=== PATIENT | female | born 1975 | race Caucasian/White ===

== ENCOUNTER 2022-01-05 18:42 | Outpatient (CLI) | payer OTHER, SELFPAY ==
--- OUTSIDE RECORDS SUMMARY | 2022-01-05 18:44 | XMS_ITS | Encounter Summary ---
:1975 Author Organization [facility] Address [address] [place] [address] Care Team Providers Name Role Phone Elsewhere, Pcp Primary Care Provider Unavailable Reason for Visit Reason Comments COVID Nurse Line Sore Throat Encounter Details Date Type Department Care Team Description 09/17/2021 Nurse Triage Division of [facility] Arminda Perez C OVID Nurse Line; [facility], Walker, RLi, [facility] [place], [place] [address] [place] [address] [address] [place] [phone] Social History Tobacco Use Types Packs/Day Years Used Date Smoking Tobacco: Never Sex Assigned at Date Recorded Not on file documented as of this encounter Miscellaneous Notes Telephone Encounter - Arminda Perez M.A.N., R.Eva., N.[facility] - 09/17/2021 12:26 PM CDT Chief Complaint / Reason for Call Patient is a 46 y.o. female calling regarding COVID Nurse Line and Sore Throat. COVID-19 Nurse Line Screening ASSESSMENT Initial Screening Pathway Select appropriate pathway: : Adult In the last 48 hours, have you had a fever* OR symptoms that are unrelated to a preexisting illness?: New sore throat, New headache Date of symptom onset: 09/13/21 COVID Symptomatic Screening Do you have any of the following urgent symptoms?: No urgent symptoms noted (Continue Screening) Have you received a COVID-19 vaccine in the last 72 hours? : No vaccine received (Continue Screening) Have you had close contact* with a person who has tested positive with COVID-19 in the past 14 days?: No (Continue Screening) Have you tested positive for COVID-19 in the last 45 days?: No. COVID-19 testing is indicated (Continue Screening for Additional Testing) Additional Screening for Influenza, RSV and Strep Select appropriate region: : [place] Are all of the following Strep criteria met? : Yes, all 3 criteria met. Strep testing is indicated (End Screening) Symptom Onset Date of symptom onset: 09/13/21 PLAN Endpoint recommendation: Symptomatic testing indicated, advised to be swabbed for Group A Strep Only(age 3 to 75 only), sent to [place] testing locations require an appointment for testing. Patient provided with local scheduling phone number. Scheduling staff will provide instructions on the locationand details of check in. Standard Care Points -Get a COVID -19 vaccine as soon as you can if not fully vaccinated. -Wash hands frequently with soap and water, use hand education program manager if soap and water aren't available. -Wear a mask over your nose and mouth to help protect yourself and others if not fully vaccinated and having no symptoms -Stay 6 feet between yourself and others who don't live with you. -Avoid crowds and poorly ventilated indoor spaces. -Seek emergent care if any of the following occur Trouble breathing Bluish lips or face Persistent pain or pressure in the chest New confusion or inability to rouse. -Notify your regular care provider of any new or worsening symptoms. Symptomatic Carepoints: All symptomatic patients, even those who are up to date with COVID-19 vaccinations, should isolate pending COVID-19 testing result received. Stay home and separate yourself fromothers and stay in a specific sick room if able. Wear a mask if you have to be around others. Avoid sharing personal or household items. Rest. Hydrate. Take Acetaminophen/Ibuprofen as needed to control fever and muscles aches. Use over the counter medications as needed for other symptoms. Gargle with 8 ounces of warm salt water several times a day for throat discomfort (1/4 tsp regular salt to 8 ounces or 1 cup warm water). Do not swallow the salt water. Throat lozenges will help keep the throat lubricated. Hard candy, lollipops, and throat lozenges are equally effective. Use a humidifier. If youhave tested negative for COVID-19, and you continue to have new or worsening symptoms, consider retesting after 72 hours. Education: Patient/caregiver able to teach back Patient agreeable to plan of care: Yes The following references were used: [facility] novel coronavirus (COVID- 19) resources Nursing judgement documented in this encounter Plan of Treatment Not on filedocumented as of this encounter Visit Diagnoses Not on filedocumented in this encounter Care Teams Ditch Inspector Relationship Specialty Start Date End Date Elsewhere, Pcp PCP - General Family Medicine 01/10/20 documented as of this encounter
--- OUTSIDE RECORDS SUMMARY | 2022-01-05 18:44 | XMS_ITS | Encounter Summary ---
:1975 Author Organization [facility] Address [address] [place] [address] Care Team Providers Name Role Phone Elsewhere, Pcp Primary Care Provider Unavailable Encounter Details Date Type Department Care Team Description 09/18/2021 Admin Visit Urgent Care in [place], [place] [address] [place] [address] [facility] [phone] Social History Tobacco Use Types Packs/Day Years Used Date Smoking Tobacco: Never Sex Assigned at Date Recorded Not on file documented as of this encounter Plan of Treatment Not on filedocumented as of this encounter Visit Diagnoses Not on filedocumented in this encounter Care Teams Proof Coin Collector Relationship Specialty Start Date End Date Elsewhere, Pcp PCP - General Family Medicine 01/10/20 documented as of this encounter
--- OUTSIDE RECORDS SUMMARY | 2022-01-05 18:44 | XMS_ITS | Encounter Summary ---
:1975 Author Organization [facility] Address [address] [place] [address] Care Team Providers Name Role Phone Elsewhere, Pcp Primary Care Provider Unavailable Encounter Details Date Type Department Care Team Description 06/23/2021 Admin Visit Urgent Care in [place], [place] [address] [place] [address] [facility] [phone] Social History Tobacco Use Types Packs/Day Years Used Date Smoking Tobacco: Never Sex Assigned at Date Recorded Not on file documented as of this encounter Plan of Treatment Not on filedocumented as of this encounter Visit Diagnoses Not on filedocumented in this encounter Additional Health Concerns Infection Onset Date Last Indicated Resolved Time COVID19 Pending 06/23/2021 06/23/2021 06/23/2021 11:29 PM CDT documented as of this encounter Care Teams Client Services Coordinator Relationship Specialty Start Date End Date Elsewhere, Pcp PCP - General Family Medicine 01/10/20 documented as of this encounter
--- OUTSIDE RECORDS SUMMARY | 2022-01-05 18:44 | XMS_ITS | Encounter Summary ---
:1975 Author Organization [facility] Address [address] [place] [address] Care Team Providers Name Role Phone Elsewhere, Pcp Primary Care Provider Unavailable Reason for Visit Reason Onset Date Comments Testing For Upper Respiratory Virus Symptoms 09/17/2021 Encounter Details Date Type Department Care Team Description 09/17/2021 External Outreach Department of Mart Cespedes [facility], S, P.A.-C. Respiratory (Primary [facility], in [address] Dx) [place], [place] [address] [address] [place], [place] [phone] (Work) [phone] Social History Tobacco Use Types Packs/Day Years Used Date Smoking Tobacco: Never Sex Assigned at Date Recorded Not on file documented as of this encounter Progress Notes Anastacia Mcneil R.N. - 09/17/2021 1:23 PM CDT Encounter created for symptomatic infectious disease screening with possible COVID, Influenza, RSV, and/or Group A Strep testing. documented in this encounter Plan of Treatment Not on filedocumented as of this encounter Procedures Procedure Name Priority Date/Time Associated Diagnosis Comme nts GROUP A STREP PCR, Routine 09/18/2021 7:58 AM Infection Upper Results for this THROAT CDT Respiratory procedure are i n the results section. documented in this encounter Results Streptococcus Group A, Molecular Detection, PCR, Throat (09/18/2021 7:58 AM CDT) athologist Signature Group A Strep Negative Negative 09/18/2021 OWAT PCR, Throat 8:57 AM CDT Specimen Anatomical Collection Method Collection Time Receive d Time (Source) Location / / Volume Laterality Varies (Throat) 09/18/2021 7:58 AM 2021 8:29 CDT AM CDT Mart Cespedes P.A.-C. LAB MICROBIOLOGY - GENERAL O RDERABLES Performing Organization Address City/State/ZIP Code Phon e Number [facility]- [address] [place] [address] [place] [address] System in [place] [address] documented in this encounter Visit Diagnoses Diagnosis Infection Upper Respiratory - Primary documented in this encounter Care Teams Livestock Trucker Relationship Specialty Start Date End Date Elsewhere, Pcp PCP - General Family Medicine 01/10/20 documented as of this encounter
--- OUTSIDE RECORDS SUMMARY | 2022-01-05 18:44 | XMS_ITS | Encounter Summary ---
:1975 Author Organization [facility] Address [address] [place] [address] Care Team Providers Name Role Phone Elsewhere, Pcp Primary Care Provider Unavailable Reason for Visit Reason Onset Date Comments Outpatient COVID-19 Testing 06/23/2021 Encounter Details Date Type Department Care Team Description 06/23/2021 External Outreach Department of Pasha Hines [facility] in [place] (Suspected) Exposure [place], [place] [address] To COVID-19 (Primary [address] [place], [place]x) [place] [phone] Social History Tobacco Use Types Packs/Day Years Used Date Smoking Tobacco: Never Sex Assigned at Date Recorded Not on file documented as of this encounter Progress Notes Anastacia Mcneil R.N. - 06/23/2021 11:23 AM CDT Encounter created for COVID-19 screening. documented in this encounter Plan of Treatment Not on filedocumented as of this encounter Procedures Procedure Name Priority Date/Time Associated Diagnosis Comme nts SARS CORONAVIRUS-2 Routine 06/23/2021 2:25 PM Contact With And Results for this RNA, V CDT (Suspected) Exposure procedu re are in To COVID-19 the results section. documented in this encounter Results SARS Coronavirus-2 RNA, V Asymptomatic (06/23/2021 2:25 PM CDT) [facility] Method Time Signature SARS-CoV-2 Swab, 06/23/2021 MKTO Specimen Nasopharynx 11:29 PM Source CDT SARS CoV-2 Undetected Undetected 06/23/2021 MKTO RNA, TMA 11:29 PM CDT Comment: SARS-CoV-2 RNA absent. This result does not rule out COVID-19 in the patient, as the sensitivity of the test depends o n the timing of the specimen collection and the quality of the specim en. Result should be correlated with patient's history and clinical presentat ion. ----ADDITIONAL INFORMATION---- This molecular amplification test was pe rformed using the Aptima SARS-CoV-2 assay ([employer] on the Theratives tem under emergency use authorization (EUA) by the U.S. Food and Drug Administ ration. Fact sheets for this EUA assay can be fo und at the following links: For Healthcare Providers: https://www.Guestmob a.gov/media/444536/download For Patients: https://www.fda.gov/media/ 890177/download Specimen Anatomical Collection Method Collection Time Receive d Time (Source) Location / / Volume Laterality Varies 06/23/2021 2:25 PM 7:18 (Nasopharynx) CDT PM CDT Pasha Hines D.O. LAB MICROBIOLOGY - GENERAL O ISAIAH Performing Organization Address City/State/ZIP Code Phon e Number [facility]- [address] [place] [address] [place] [address] System [address] documented in this encounter Visit Diagnoses Diagnosis Contact With And (Suspected) Exposure To COVID-19 - Primary documented in this encounter Additional Health Concerns Infection Onset Date Last Indicated Resolved Time COVID19 Pending 06/23/2021 06/23/2021 06/23/2021 11:29 PM CDT documented as of this encounter Care Teams Mine Supervisor Relationship Specialty Start Date End Date Elsewhere, Pcp PCP - General Family Medicine 01/10/20 documented as of this encounter
--- OUTSIDE RECORDS SUMMARY | 2022-01-05 18:44 | XMS_ITS | Clinical Summary ---
:1975 Author Organization [facility] Address [address] [place] [address] Care Team Providers Name Role Phone Elsewhere, Pcp Primary Care Provider Unavailable Source Comments Patient records contain information from all sites at [facility]. For routine questions regarding patient records, call [phone] during business hours, M-F 8:00 AM - 5:00 PM Central Time. Record requests for emergency care only can be directed to [phone] at any time.[facility] Active Problems Problem Noted Date Dysthymia 11/28/2007 Overview: Depression Anxiety Immunizations Name Administration Dates Next Due DTaP (Infanrix, [employer]) 04/25/2009 HepB, Unspecified 07/12/2005, 02/10/2005, 01/05/2005 Tdap 04/25/2009 Social History Tobacco Use Types Packs/Day Years Used Date Smoking Tobacco: Never Sex Assigned at Date Recorded Not on file Last Filed Vital Signs Vital Sign Reading Time Taken Comments Blood Pressure 108/68 02/15/2015 10:07 AM QUALITY ANALYST/TECHNICAL WRITER Pulse 80 02/15/2015 10:07 AM QUALITY ANALYST/TECHNICAL WRITER Temperature - - Respiratory Rate 13 02/15/2015 10:07 AM QUALITY ANALYST/TECHNICAL WRITER Oxygen Saturation - - Inhaled Oxygen Concentration - - Weight 69.8 kg (153 lb 14.1 oz) 02/15/2015 10:07 AM QUALITY ANALYST/TECHNICAL WRITER Height - - Body Mass Index - - Plan of Treatment Health Maintenance Due Date Last Done Comments CT Colonography 1975 Cervical Cancer Screening 1975 Cologuard 1975 Colonoscopy 1975 Colorectal Cancer Screening 1975 Creatinine Level 1975 FIT 1975 Fasting Glucose for Diabetes 1975 Screening HIV Screening 1975 Hepatitis C Screening 1975 Lipid (Cholesterol) Screening 1975 Mammogram 1975 Potassium Level 1975 Sodium Level 1975 COVID-19 Vaccine (#1) 1975 Depression Screening (Annual 02/21/2021 PHQ-2) Influenza Vaccine (#1) 2021 11/04/2016, 11/14/2014 DTaP,Tdap,and Td Vaccines (3 11/29/2026 11/29/2016, - Td or Tdap) 04/25/2009, 04/25/2009 Hepatitis B Vaccines Completed 07/12/2005, 02/10/2005, 01/05/2005 Pneumococcal vaccine (0-64 Aged Out No lo nger eligible based years) on patient's age to complete this to [facility] Insurance Payer Benefit Plan / Subscriber ID Effective Phone Address T ype Group Dates [facility] [id number] 2019-Pres [phone] [address] [employer] [phone] [place] [address] Care Teams Production Hand Relationship Specialty Start Date End Date Elsewhere, Pcp PCP - General Family Medicine 01/10/20
--- OUTSIDE RECORDS SUMMARY | 2022-01-05 18:45 | XMS_ITS | Encounter Summary ---
:1975 Author Organization [facility] Address [address] [place] [address] Care Team Providers Name Role Phone Unavailable Primary Care Provider Unavailable Encounter Details Date Type Department Care Team Description 04/16/2004 Hospital Encounter HX [facility] FAMILYPR[facility] Mariann Alejandra M.D. Social History Tobacco Use Types Packs/Day Years Used Date Smoking Tobacco: Never Assessed Sex Assigned at Date Recorded Not on file documented as of this encounter Plan of Treatment Not on filedocumented as of this encounter Visit Diagnoses Not on filedocumented in this encounter
--- OUTSIDE RECORDS SUMMARY | 2022-01-05 18:45 | XMS_ITS | Encounter Summary ---
:1975 Author Organization [facility] Address [address] [place] [address] Care Team Providers Name Role Phone Elsewhere, Pcp Primary Care Provider Unavailable Encounter Details Date Type Department Care Team Description 06/18/2020 Orders Only [facility] PCP [facility] Sa alexandria France M.D. [address] [place], [place] [phone] (Wo rk) Social History Tobacco Use Types Packs/Day Years Used Date Smoking Tobacco: Never Sex Assigned at Date Recorded Not on file documented as of this encounter Plan of Treatment Not on filedocumented as of this encounter Visit Diagnoses Not on filedocumented in this encounter Care Teams Retail Pharmacy Technician Relationship Specialty Start Date End Date Elsewhere, Pcp PCP - General Family Medicine 01/10/20 documented as of this encounter
--- OUTSIDE RECORDS SUMMARY | 2022-01-05 18:45 | XMS_ITS | Encounter Summary ---
:1975 [address] [facility] Address [address] [place] [address] Care Team Providers Name Role Phone Unavailable Primary Care Provider Unavailable Encounter Details Date Type Department Care Team Description 01/05/2005 Hospital Encounter [facility] Mariann Sharpe M.D. Social History Tobacco Use Types Packs/Day Years Used Date Smoking Tobacco: Never Assessed Sex Assigned at Date Recorded Not on file documented as of this encounter Plan of Treatment Not on filedocumented as of this encounter Visit Diagnoses Not on filedocumented in this encounter
--- OUTSIDE RECORDS SUMMARY | 2022-01-05 18:45 | XMS_ITS | Encounter Summary ---
:1975 Author Organization [facility] Address [address] [place] [address] Care Team Providers Name Role Phone Unavailable Primary Care Provider Unavailable Encounter Details Date Type Department Care Team Description 04/25/2009 Hospital Encounter HX [facility] FAMILYPR[facility] Mariann Alejandra M.D. Social History Tobacco Use Types Packs/Day Years Used Date Smoking Tobacco: Never Assessed Sex Assigned at Date Recorded Not on file documented as of this encounter Plan of Treatment Not on filedocumented as of this encounter Visit Diagnoses Not on filedocumented in this encounter
--- OUTSIDE RECORDS SUMMARY | 2022-01-05 18:45 | XMS_ITS | Encounter Summary ---
:1975 Author Organization [facility] Address [address] [place] [address] Care Team Providers Name Role Phone Unavailable Primary Care Provider Unavailable Encounter Details Date Type Department Care Team Description 10/22/2014 Hospital Encounter HX [facility] DERM Charis Brooke M.D. [address] [place] [address] (Wo rk) Social History Tobacco Use Types Packs/Day Years Used Date Smoking Tobacco: Never Assessed Sex Assigned at Date Recorded Not on file documented as of this encounter Plan of Treatment Not on filedocumented as of this encounter Visit Diagnoses Not on filedocumented in this encounter
--- OUTSIDE RECORDS SUMMARY | 2022-01-05 18:45 | XMS_ITS | Encounter Summary ---
:1975 Author Organization [facility] Address [address] [place] [address] Care Team Providers Name Role Phone Unavailable Primary Care Provider Unavailable Encounter Details Date Type Department Care Team Description 04/22/2008 Hospital Encounter HX NO MAPPING Lauren Mendes Au. D. Social History Tobacco Use Types Packs/Day Years Used Date Smoking Tobacco: Never Assessed Sex Assigned at Date Recorded Not on file documented as of this encounter Plan of Treatment Not on filedocumented as of this encounter Visit Diagnoses Not on filedocumented in this encounter
--- OUTSIDE RECORDS SUMMARY | 2022-01-05 18:45 | XMS_ITS | Encounter Summary ---
:1975 Author Organization [facility] Address [address] [place] [address] Care Team Providers Name Role Phone Unavailable Primary Care Provider Unavailable Encounter Details Date Type Department Care Team Description 11/15/2005 Hospital Encounter HX [facility] FAMILYPR[facility] Mariann Alejandra M.D. Social History Tobacco Use Types Packs/Day Years Used Date Smoking Tobacco: Never Assessed Sex Assigned at Date Recorded Not on file documented as of this encounter Plan of Treatment Not on filedocumented as of this encounter Visit Diagnoses Not on filedocumented in this encounter
--- OUTSIDE RECORDS SUMMARY | 2022-01-05 18:45 | XMS_ITS | Encounter Summary ---
:1975 Author Organization [facility] Address [address] [place] [address] Care Team Providers Name Role Phone Unavailable Primary Care Provider Unavailable Encounter Details Date Type Department Care Team Description 09/27/2005 Hospital Encounter [facility]X [facility] FAMILY[facility] Loi Andersen M.D. [address] [place] [address] (Wo rk) Social History Tobacco Use Types Packs/Day Years Used Date Smoking Tobacco: Never Assessed Sex Assigned at Date Recorded Not on file documented as of this encounter Plan of Treatment Not on filedocumented as of this encounter Visit Diagnoses Not on filedocumented in this encounter
--- OUTSIDE RECORDS SUMMARY | 2022-01-05 18:45 | XMS_ITS | Encounter Summary ---
:1975 Author Organization [facility] Address [address] [place] [address] Care Team Providers Name Role Phone Unavailable Primary Care Provider Unavailable Encounter Details Date Type Department Care Team Description 04/06/2004 Hospital Encounter HX [facility] Ariana Ramírez M.D. [address] [place], [place] [address] (Wo rk) Social History Tobacco Use Types Packs/Day Years Used Date Smoking Tobacco: Never Assessed Sex Assigned at Date Recorded Not on file documented as of this encounter Plan of Treatment Not on filedocumented as of this encounter Visit Diagnoses Not on filedocumented in this encounter
--- OUTSIDE RECORDS SUMMARY | 2022-01-05 18:45 | XMS_ITS | Encounter Summary ---
:1975 Author Organization [facility] Address [address] [place] [address] Care Team Providers Name Role Phone Elsewhere, Pcp Primary Care Provider Unavailable Reason for Visit Reason Comments Flank Pain Encounter Details Date Type Department Care Team Description 01/05/2021 Emergency [facility] (Primary Dx); [address] [place] [address] Social History Tobacco Use Types Packs/Day Years Used Date Smoking Tobacco: Never Sex Assigned at Date Recorded Not on file documented as of this encounter Plan of Treatment Not on filedocumented as of this encounter Procedures Procedure Name Priority Date/Time Associated Comments Diagnosis CT ABDOMEN PELVIS RAD - Semiurgent 01/05/2021 8:15 Pain Flank Res ults for this WITHOUT IV CONTRAST (Fast; most ED PM LEGAL ADMINISTRATIVE ASSISTANT proced ure are in patients; some the results inpatients) section. US GALLBLADDER AND RAD - Semiurgent 01/05/2021 4:51 Re sults for this OR BILIARY DUCTS (Fast; most ED PM LEGAL ADMINISTRATIVE ASSISTANT procedure are in patients; some the results inpatients) section. documented in this encounter Results CT Abdomen Pelvis without IV Contrast (01/05/2021 8:15 PM LEGAL ADMINISTRATIVE ASSISTANT) Anatomical Region Laterality Modality Abdomen, Pelvis, Abdominal RST LOS, Abdominal ARZ LOS, N/A Computed Tomography Abdominal FLA LOS Specimen (Source) Anatomical Collection Method Collection Time Re ceived Time Location / / Volume Laterality 01/06/2021 8:31 AM LEGAL ADMINISTRATIVE ASSISTANT Impressions 01/06/2021 8:48 AM LEGAL ADMINISTRATIVE ASSISTANT 1. No hydronephrosis in either kidney. 2. 2 mm elongated focus of increased att enuation in the lower pole of the right kidney may be a miniscule nonobstructing calculus. vRad: ??Findings concordant with ronaldo Binghamad report. Narrative 01/06/2021 8:48 AM LEGAL ADMINISTRATIVE ASSISTANT EXAM: CT ABDOMEN PELVIS WITHOUT IV CONTRAST COMPARISON: Gallbladder ultrasound [facility] 01/05/2021 and Limited pelvic ultrasound examination 09/11/2008 FINDINGS: Liver: No acute abnormalities. Gallbladder: ??Normal. Spleen: No acute abnormalities. Pancreas: Within normal limits. Adrenal Glands: Within normal limits Kidneys: There is a 2 mm elongated focus of increased attenuation in the lower pole of the right kidney which may be a miniscule nonobstructing calculus. There is no hydronephrosis in either kidney. N o abnormal masses are identified. Bladder: No acute abnormalities. Bowel: No acute abnormalities. Minimal c olonic diverticulosis. Appendix: No acute abnormalities. Aorta: Within normal limits Inferior Vena Cava: Within normal limits Musculoskeletal: No acute abnormalities. Presumed bone islands in the pelvis. Lung Bases: No significant acute abnorma lity is identified in the visualized lung bases. Procedure Note Davie Garnett M.D. - 01/06/2021Format ting of this note might be different from the original. EXAM: CT ABDOMEN PELVIS WITHOUT IV CONTR AST [facility] and Limited pelvic ultrasound examination 09/11/2008 FINDINGS: Liver: No acute abnormalities. Gallbladder: Normal. Spleen: No acute abnormalities. Pancreas: Within normal limits. Adrenal Glands: Within normal limits Kidneys: There is a 2 mm elongated focus of increased attenuation in the lower pole of the right kidney which may be a miniscule nonobstructing calculus. There is no hydronephrosis in either kidney. N o abnormal masses are identified. Bladder: No acute abnormalities. Bowel: No acute abnormalities. Minimal c olonic diverticulosis. Appendix: No acute abnormalities. Aorta: Within normal limits Inferior Vena Cava: Within normal limits Musculoskeletal: No acute abnormalities. Presumed bone islands in the pelvis. Lung Bases: No significant acute abnorma lity is identified in the visualized lung bases. IMPRESSION: 1. No hydronephrosis in either kidney. 2. 2 mm elongated focus of increased att enuation in the lower pole of the right kidney may be a miniscule nonobstructing calculus. vRad: Findings concordant with prelimina ry vRad report. Carlton N Hicks C.N.P. IMG CT PROCEDURES US Gallbladder and or Biliary Ducts (01/05/2021 4:51 PM LEGAL ADMINISTRATIVE ASSISTANT) Anatomical Region Laterality Modality Abdomen, Ultrasound RST LOS, Ultrasound ARZ LOS, Ultrasound FLA N/A Ultrasound LOS Specimen (Source) Anatomical Collection Method Collection Time Re ceived Time Location / / Volume Laterality 01/05/2021 4:52 PM LEGAL ADMINISTRATIVE ASSISTANT Impressions 01/05/2021 4:53 PM LEGAL ADMINISTRATIVE ASSISTANT No gallstones. No bile duct dilation. Narrative 01/05/2021 4:53 PM LEGAL ADMINISTRATIVE ASSISTANT EXAM: US GALLBLADDER AND OR BILIARY DUCTS COMPARISON: None FINDINGS: Gallbladder: Normal. No gallstones. No w all thickening or pericholecystic fluid. Negative sonographic Duke sign. Intrahepatic ducts: Not dilated. Common duct: Not dilated. Aorta: Normal caliber. Procedure Note Carlin Grace M.D. - 01/05/2021Formattin g of this note might be different from the original. EXAM: US GALLBLADDER AND OR BILIARY DUCT S COMPARISON: None FINDINGS: Gallbladder: Normal. No gallstones. No w all thickening or pericholecystic fluid. Negative sonographic Duke sign. Intrahepatic ducts: Not dilated. Common duct: Not dilated. Aorta: Normal caliber. IMPRESSION: No gallstones. No bile duct dilation. Carlton N Hicks C.N.P. IMG US PROCEDURES documented in this encounter Visit Diagnoses Diagnosis Stone Kidney - Primary Pain Flank documented in this encounter Care Teams Enterprise Account Executive Relationship Specialty Start Date End Date Elsewhere, Pcp PCP - General Family Medicine 01/10/20 documented as of this encounter
--- OUTSIDE RECORDS SUMMARY | 2022-01-05 18:45 | XMS_ITS | Encounter Summary ---
:1975 Author Organization [facility] Address [address] [place] [address] Care Team Providers Name Role Phone Unavailable Primary Care Provider Unavailable Encounter Details Date Type Department Care Team Description 06/30/2007 Hospital Encounter HX [facility] Mariann Alejandra M.D. Social History Tobacco Use Types Packs/Day Years Used Date Smoking Tobacco: Never Assessed Sex Assigned at Date Recorded Not on file documented as of this encounter Plan of Treatment Not on filedocumented as of this encounter Visit Diagnoses Not on filedocumented in this encounter
--- OUTSIDE RECORDS SUMMARY | 2022-01-05 18:45 | XMS_ITS | Encounter Summary ---
:1975 Author Organization [facility] Address [address] [place] [address] Care Team Providers Name Role Phone Unavailable Primary Care Provider Unavailable Encounter Details Date Type Department Care Team Description 10/27/2006 Hospital Encounter HX [facility] Mariann Alejandra M.D. Social History Tobacco Use Types Packs/Day Years Used Date Smoking Tobacco: Never Assessed Sex Assigned at Date Recorded Not on file documented as of this encounter Plan of Treatment Not on filedocumented as of this encounter Visit Diagnoses Not on filedocumented in this encounter
--- OUTSIDE RECORDS SUMMARY | 2022-01-05 18:45 | XMS_ITS | Encounter Summary ---
:1975 Author Organization [facility] Address [address] [place] [address] Care Team Providers Name Role Phone Unavailable Primary Care Provider Unavailable Encounter Details Date Type Department Care Team Description 05/29/2004 Hospital Encounter HX [facility] Ariana Ramírez M.D. [address] [place], [place] [address] (Wo rk) Social History Tobacco Use Types Packs/Day Years Used Date Smoking Tobacco: Never Assessed Sex Assigned at Date Recorded Not on file documented as of this encounter Plan of Treatment Not on filedocumented as of this encounter Visit Diagnoses Not on filedocumented in this encounter
--- OUTSIDE RECORDS SUMMARY | 2022-01-05 18:45 | XMS_ITS | Encounter Summary ---
:1975 Author Organization [facility] Address [address] [place] [address] Care Team Providers Name Role Phone Unavailable Primary Care Provider Unavailable Encounter Details Date Type Department Care Team Description 07/12/2005 Hospital Encounter HX [facility] [place] Provider, [place] Social History Tobacco Use Types Packs/Day Years Used Date Smoking Tobacco: Never Assessed Sex Assigned at Date Recorded Not on file documented as of this encounter Plan of Treatment Not on filedocumented as of this encounter Visit Diagnoses Not on filedocumented in this encounter
--- OUTSIDE RECORDS SUMMARY | 2022-01-05 18:45 | XMS_ITS | Encounter Summary ---
:1975 Author Organization [facility] Address [address] [place] [address] Care Team Providers Name Role Phone Unavailable Primary Care Provider Unavailable Encounter Details Date Type Department Care Team Description 10/22/2014 Hospital Encounter HX [facility] Charis Brooke M.D. [facility], [place] [phone] (Wo ) Social History Tobacco Use Types Packs/Day Years Used Date Smoking Tobacco: Never Assessed Sex Assigned at Date Recorded Not on file documented as of this encounter Progress Notes Zoran Brooke M.D. - 10/22/2014 8:57 AM CDT [id number] CHIEF COMPLAINT/REASON FOR VISIT Full skin exam to screen for skin cancer. HISTORY OF PRESENT ILLNESS This 39-year-old female is here for a full skin exam. She was last seen in September of 2011. She has afamily history of a father that has had at least 2 melanomas. She herself has had no skin cancer, but she has had extensive sun exposure when she was growing up. She is also concerned about her acne. She had been on spironolactone for a while and then stopped itwhen she moved to [place], [place], and were attempting to have another child, but now she is 39 and has decided to give up on that and would like to have her acne treated again. MEDICATIONS Please see medication list in [facility] EMR updated today. ALLERGIES Please see allergy list in [facility] EMR updated today. SYSTEMS REVIEW Please see pertinent positives listed in HPI. Otherwise rest of systems review is negative. PAST MEDICAL/SURGICAL HISTORY Reviewed per EMR. Skin history as reviewed in HPI. 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 Enjoys volleyball and reading. Does not smoke. Drinks alcohol 3 to 5 a week. FAMILY HISTORY Psoriasis, eczema, acne, skin cancer. Negative for hayfever and asthma. PHYSICAL EXAMINATION GENERAL: Alert and oriented x3 in no acute distress. Pleasant demeanor. Well groomed. Near ideal weight. SKIN: Type 2 skin with mild photodamage on shoulders and upper back. She does have some mild comedones on the upper back, forehead, and chin. No inflammatory papules are noted. There are very few nevi and those that are present appear benign. She has some slight seborrhea along the frontal hairline. DIGITS: Fingers, toes, and nails are within normal limits on visualization and palpation. HEAD: Lips and teeth within normal limits. Hair of scalp and face within normal limits. EYES: Eyes and eyelids normal. THYROID: No thyromegaly on palpation. PERIPHERAL VESSELS: Peripheral vascular system intact. DIAGNOSTICS Medical records from previous visits were reviewed. Pertinent lab results were examined. Verbal consent for any photos was obtained. IMPRESSION/REPORT/PLAN 1. Full skin examination to screen for skin cancer. 2. Solar elastosis. Sun protection and sun avoidance were reviewed with the patient. Educational materials were reviewed regarding skin self-examination, the warning signs and symptoms of skin cancer, and the proper use of sunscreens. 3. Mild acne. I do not think she will require spironolactone for this. We talked about Glytone Gel Wash and suggested Aczone, but it was not covered by her insurance. 4. Seborrheic dermatitis. Refilled her desonide, which she uses infrequently for this problem. She will follow up as needed. Zoran Brooke M.D./priscilla Electronically Signed By: ZORAN BROOKE MD On: 12/11/2014 01:37 PM Source: [facility] MHSDOLBEYNONRADSYS Document Id: [id number] documented in this encounter Miscellaneous Notes Miscellaneous - Reba Yoon C.M.A. - 10/22/2014 9:09 AM CDT Adult Student Affairs Vice President Intake/History Adult Student Affairs Vice President Intake/History Entered On: 10/22/2014 9:10 CDT Performed On: 10/22/2014 9:09 CDT by REBA YOON [facility] Intake Chief Complaint : fse stopped acne medication last year would like to restart REBA YOON CMA - 10/22/2014 9:09 CDT General Info Information Given By : Patient Languages : Chilean Is Patient Female and 13-50 no hysterectomy : Yes Status : Patient denies Are you ? : No REBA YOON [facility] - 10/22/2014 9:09 CDT Subjective Pain Symptoms : No REBA YOON CMA - 10/22/2014 9:09 CDT Dependent Habits Tobacco Use/Currently Using : No Smoking Status : Never smoker REBA YOON [facility] - 10/22/2014 9:09 CDT Source: [facility] POWERCHART Document Id: [id number] CDT!14 documented in this encounter Plan of Treatment Not on filedocumented as of this encounter Visit Diagnoses Not on filedocumented in this encounter
--- OUTSIDE RECORDS SUMMARY | 2022-01-05 18:45 | XMS_ITS | Encounter Summary ---
:1975 Author Organization [facility] Address [address] [place] [address] Care Team Providers Name Role Phone Elsewhere, Pcp Primary Care Provider Unavailable Reason for Visit Reason Comments COVID Inquiry Encounter Details Date Type Department Care Team Description 03/12/2021 Clinical Communication Department of Family Elsewhere, [facility] [place] [place] [address] [place] [address] Social History Tobacco Use Types Packs/Day Years Used Date Smoking Tobacco: Never Sex Assigned at Date Recorded Not on file documented as of this encounter Miscellaneous Notes Telephone Encounter - Barbara Park - 03/12/2021 2:45 PM CST What is the purpose of the call?: Symptomatic (Calling PCP Office) Calling [place] PCP Office What region is the patient calling from? : [place] Have you tested positive for COVID-19 in the last 20 days? : No In the past 14 days are any of the following symptoms new to you and not related to an existing health condition?: New cough, New nausea, New chills, New myalgias (muscle aches), New headache Because of symptoms, transfer patient to: : [place] COVID Nurse Line (End Screening) Symptom Onset Date of symptom onset: 03/11/21 Plan: Endpoint recommendation: Transferred to Nursing/COVID Line/Care Team *Reminder if sending patient for testing in [facility] or [facility], route encounter to the correct testing pool. RTISING CONSULTANT documented in this encounter Plan of Treatment Not on filedocumented as of this encounter Visit Diagnoses Not on filedocumented in this encounter Care Teams Resident Services Coordinator Relationship Specialty Start Date End Date Elsewhere, Pcp PCP - General Family Medicine 01/10/20 documented as of this encounter
--- OUTSIDE RECORDS SUMMARY | 2022-01-05 18:45 | XMS_ITS | Encounter Summary ---
:1975 Author Organization [facility] Address [address] [place] [address] Care Team Providers Name Role Phone Unavailable Primary Care Provider Unavailable Encounter Details Date Type Department Care Team Description 04/10/2004 Hospital Encounter HX [facility] Ariana Ramírez M.D. [address] [place], [place] [address] (Wo rk) Social History Tobacco Use Types Packs/Day Years Used Date Smoking Tobacco: Never Assessed Sex Assigned at Date Recorded Not on file documented as of this encounter Plan of Treatment Not on filedocumented as of this encounter Visit Diagnoses Not on filedocumented in this encounter
--- OUTSIDE RECORDS SUMMARY | 2022-01-05 18:45 | XMS_ITS | Encounter Summary ---
:1975 Author Organization [facility] Address [address] [place] [address] Care Team Providers Name Role Phone Unavailable Primary Care Provider Unavailable Encounter Details Date Type Department Care Team Description 11/21/2007 Hospital Encounter HX [facility] Charis Brooke M.D. [address] [place] [address] (Wo rk) Social History Tobacco Use Types Packs/Day Years Used Date Smoking Tobacco: Never Assessed Sex Assigned at Date Recorded Not on file documented as of this encounter Plan of Treatment Not on filedocumented as of this encounter Visit Diagnoses Not on filedocumented in this encounter
--- OUTSIDE RECORDS SUMMARY | 2022-01-05 18:45 | XMS_ITS | Encounter Summary ---
:1975 Author Organization [facility] Address [address] [place] [address] Care Team Providers Name Role Phone Unavailable Primary Care Provider Unavailable Encounter Details Date Type Department Care Team Description 10/18/2005 Hospital Encounter HX [facility] Mariann Alejandra M.D. Social History Tobacco Use Types Packs/Day Years Used Date Smoking Tobacco: Never Assessed Sex Assigned at Date Recorded Not on file documented as of this encounter Plan of Treatment Not on filedocumented as of this encounter Visit Diagnoses Not on filedocumented in this encounter
--- OUTSIDE RECORDS SUMMARY | 2022-01-05 18:45 | XMS_ITS | Encounter Summary ---
:1975 Author Organization [facility] Address [address] [place] [address] Care Team Providers Name Role Phone Unavailable Primary Care Provider Unavailable Encounter Details Date Type Department Care Team Description 04/11/2008 Hospital Encounter HX [facility] Atilio Orellana M.D. [address] [place], [place] [address] (Wo rk) Social History Tobacco Use Types Packs/Day Years Used Date Smoking Tobacco: Never Assessed Sex Assigned at Date Recorded Not on file documented as of this encounter Plan of Treatment Not on filedocumented as of this encounter Visit Diagnoses Not on filedocumented in this encounter
--- OUTSIDE RECORDS SUMMARY | 2022-01-05 18:45 | XMS_ITS | Encounter Summary ---
:1975 Author Organization [facility] Address [address] [place] [address] Care Team Providers Name Role Phone Elsewhere, Pcp Primary Care Provider Unavailable Reason for Visit Reason Onset Date Comments Testing For Upper Respiratory Virus Symptoms 03/12/2021 Encounter Details Date Type Department Care Team Description 03/12/2021 External Outreach Department of Family Pasha Hines Contact With And (Suspected) Exposure To COVID-19; Medicine, [facility] Ashish Harley D.O. Infection [facility] Respiratory [facility], in [address] [place], [place] [address] [facility] [address] [place], [place] [phone] [address] (Work) [phone] Social History Tobacco Use Types Packs/Day Years Used Date Smoking Tobacco: Never Sex Assigned at Date Recorded Not on file documented as of this encounter Progress Notes Barbara Stout, L.P.N. - 03/12/2021 3:01 PM CST Encounter created for symptomatic infectious disease screening with possible COVID, Influenza, RSV, and/or Group A Strep testing. GEMENT TECHNICIAN documented in this encounter Miscellaneous Notes Result Encounter Note - Tonya Kennedy R.N. - 03/13/2021 4:36 PM MANAGEMENT TECHNICIAN Your patient has tested positive for SARS-CoV-2, the virus that causes COVID-19. IMPORTANT: Please update the patient's problem list and medication list to ensure an accurate and timely evaluation for COVID-19 treatments, including various medications and Remote Patient Monitoring (RPM). If eligible for COVID-19 treatments or RPM, your patient will be contacted by a designated team of nurses to coordinate the care. The [facility] Care Team ([facility]WCCT) sends general guidance about COVID-19 to all patients by letter or portal, except when a patient is hospitalized or resides in a detention. The MWCCT will also call all adult patients at highest risk for severe complications of COVID-19 . [facility] will not be calling patients who have a MASS 0-3. If your patient has limited Yi proficiency or challenges navigating the healthcare system, consider having a member of your care team contact them regarding their COVID diagnosis. Any patient with a MASS score 1 or greater or a COVID-19 score 1 or greater may be at higher risk ofsevere disease. These patients will follow up directly with primary care. The primary care team willdecide if the patient needs a phone call or a follow up portal message to assess symptom severity, provide individualized guidance on symptom monitoring or symptom management, or to reinforce when to se ek care. [facility] encourages patients to follow up with their PCP with questions, worsening symptoms, or for symptom management. For questions, contact the [facility] Care Team (MWCCT): Pager: [phone] In basket: P RST/[facility] COVID-19 POSITIVE Covid Care e-consult Components of the Monoclonal Antibody Selection Score (MASS) Compromised Immune System/Transplant = 4 points Chronic Kidney Disease on Dialysis = 3 points Age greater than or equal to 55 and chronic pulmonary disease = 2 points Age greater than or equal to 65 = 2 points Diabetes = 2 points Age greater than or equal to 55 AND cardiovascular disease = 2 points Age greater than or equal to 55 and hypertension = 1 point BMI =/> 35 = 1 point NOTE: At the time of testing, patients are instructed to obtain the result by calling the [employer] result line or by checking their online services account. GEMENT TECHNICIAN documented in this encounter Plan of Treatment Not on filedocumented as of this encounter Procedures Procedure Name Priority Date/Time Associated Diagnosis Comme nts INFLUENZA A/B AND Routine 03/12/2021 3:10 PM Infection Upper R esults for this RSV, PCR, VARIES MANAGEMENT TECHNICIAN Respiratory procedure a re in the results section. SARS CORONAVIRUS-2 Routine 03/12/2021 3:10 PM Contact With And Results for this RNA, V MANAGEMENT TECHNICIAN (Suspected) Exposure procedu re are in To COVID-19 the results section. documented in this encounter Results Influenza A/B and RSV, PCR, Varies (03/12/2021 3:10 PM MANAGEMENT TECHNICIAN) [facility] Method Time Signature Influenza A/B Swab, 03/14/2021 DTL and RSV, Nasopharynx 9:04 PM MANAGEMENT TECHNICIAN Source Influenza A, Undetected Undetected 03/14/2021 DTL PCR 9:04 PM MANAGEMENT TECHNICIAN Comment: Influenza A RNA absent. Influenza B, PCR Undetected Undetected 03/14/2021 9:04 PM CS T DTL Comment: Influenza B RNA absent. Respiratory Syncytial Virus, PCR Undetected Undetected 9:04 PM MANAGEMENT TECHNICIAN DTL Comment: RSV RNA absent. ----ADDITIONAL INFORMATION---- This test has been modified from the man daneacturer's instructions. Its performance characteristics were determi cynthia by [facility] in a manner consistent with CLIA requirements. This test has not been cleared or approved by the U.S. Food and Drug Administration . Specimen Anatomical Collection Method Collection Time Receive d Time (Source) Location / / Volume Laterality Varies 03/12/2021 3:10 PM (Nasopharynx) MANAGEMENT TECHNICIAN 10:24 PM MANAGEMENT TECHNICIAN Pasha Hines D.O. LAB MICROBIOLOGY - GENERAL O RDERABLES Performing Organization Address City/State/ZIP Code Phon e Number [facility] - [address] [place], [place] [address] [facility] [place] [place] [address] Laboratories-[facility] [address] (ABNORMAL) SARS Coronavirus-2 RNA, V Symptomatic (03/12/2021 3:10 PM MANAGEMENT TECHNICIAN) [facility] Method Time Signature SARS-CoV-2 Swab, 03/13/2021 MKTO Specimen Nasopharynx 11:17 AM Source MANAGEMENT TECHNICIAN SARS CoV-2 Detected (A) Undetected 03/13/2021 MKTO RNA, TMA 11:17 AM MANAGEMENT TECHNICIAN Comment: SARS-CoV-2 RNA present. ----ADDITIONAL INFORMATION---- This molecular amplification test was pe rformed using the Aptima SARS-CoV-2 assay ([employer] on the [employer] Sys tem under emergency use authorization (EUA) by the U.S. Food and Drug Administ kalpesh. Fact sheets for this EUA assay can be fo und at the following links: For Healthcare Providers: https://www.fd a.gov/media/980873/download For Patients: https://www.fda.gov/media/ 323550/download Specimen Anatomical Collection Method Collection Time Receive d Time (Source) Location / / Volume Laterality Varies 03/12/2021 3:10 PM 8:38 (Nasopharynx) MANAGEMENT TECHNICIAN PM MANAGEMENT TECHNICIAN Pasha Hines D.O. LAB MICROBIOLOGY - GENERAL O RDERABLES Performing Organization Address City/State/ZIP Code Phon e Number [facility]- [address] [place] [address] [place] [address] System [address] documented in this encounter Visit Diagnoses Diagnosis Contact With And (Suspected) Exposure To COVID-19 Infection Upper Respiratory documented in this encounter Additional Health Concerns Infection Onset Date Last Indicated Resolved Time COVID19 Pending 03/12/2021 03/12/2021 03/13/2021 11:18 AM MANAGEMENT TECHNICIAN documented as of this encounter Care Teams Playground Worker Relationship Specialty Start Date End Date Elsewhere, Pcp PCP - General Family Medicine 01/10/20 documented as of this encounter
--- OUTSIDE RECORDS SUMMARY | 2022-01-05 18:45 | XMS_ITS | Encounter Summary ---
:1975 Author Organization [facility] Address [address] [place] [address] Care Team Providers Name Role Phone Elsewhere, Pcp Primary Care Provider Unavailable Reason for Visit Reason Comments COVID Inquiry Encounter Details Date Type Department Care Team Description 11/03/2020 Clinical Communication Department of [facility] Inquiry [facility], [facility], in [address] [address] Social History Tobacco Use Types Packs/Day Years Used Date Smoking Tobacco: Never Sex Assigned at Date Recorded Not on file documented as of this encounter Miscellaneous Notes Telephone Encounter - Tanja Flores - 11/03/2020 12:40 PM CDT What is the purpose of the call?: Symptomatic (Calling PCP Office) Calling [place] PCP Office What region is the patient calling from? : [place] Have you tested positive for COVID-19 in the last 20 days? : No In the past 14 days are any of the following symptoms new to you and not related to an existing health condition?: New cough, Fever*, New shortness of breath, New diarrhea, New nausea, New chills, New myalgias (muscle aches), New headache, New loss of smell, New change or loss of taste sensation Symptom Onset Date of symptom onset: 10/30/20 Testing Recommendation Endpoint Is testing recommended? : Transferred to nursing call line Plan: Endpoint recommendation: Transferred to Nursing/COVID Line/Care Team *Reminder if sending patient for testing in [facility] or [facility], route encounter to the correct testing pool. documented in this encounter Plan of Treatment Not on filedocumented as of this encounter Visit Diagnoses Not on filedocumented in this encounter Care Teams Glass Frame Fitter Relationship Specialty Start Date End Date Elsewhere, Pcp PCP - General Family Medicine 01/10/20 documented as of this encounter
--- OUTSIDE RECORDS SUMMARY | 2022-01-05 18:45 | XMS_ITS | Encounter Summary ---
:1975 Author Organization [facility] Address [address] [place] [id number] Care Team Providers Name Role Phone Elsewhere, Pcp Primary Care Provider Unavailable Reason for Visit Reason Comments AILEEN Nurse Deanna Encounter Details Date Type Department Care Team Description 11/03/2020 Clinical Communication Division of AILEEN [facility] Internal Merlene Harley R.N. [facility], [place] [address] [facility], in [facility] [address] [place] [phone] [address] [facility] (Work) [place] [address] Social History Tobacco Use Types Packs/Day Years Used Date Smoking Tobacco: Never Sex Assigned at Date Recorded Not on file documented as of this encounter Miscellaneous Notes Telephone Encounter - Merlene Howard R.N. - 11/03/2020 12:42 PM CDT COVID-19 Nurse Line Screening ASSESSMENT Region Select appropriate region: : [place] Age Pathway Select approprite pathway: : Adult Have you had close contact* with a person who has a LABORATORY CONFIRMED case of COVID-19 in the past 14 days?: No (Continue Screening) In the last 48 hours, have you had a fever* OR symptoms that are unrelated to a preexisting illness?: New muscle aches, New cough, Fever, New loss of smell, New change or loss of taste sensation, New shortness of breath, New diarrhea, New nausea (Runny nose; she also notes a little chest tightness with the chest congestion but denies pain; fatigue) Have you received a COVID-19 vaccine in the last 72 hours? : No vaccine received (Continue Screening) Do you have any of the following urgent symptoms?: No urgent symptoms noted (Continue Screening) Have you tested positive for COVID-19 in the last 45 days?: No (Continue Screening) Are ALL the following criteria met: age between 18 to 75 yrs, main symptom is a sore throat with duration of 24 hrs to 7 days, onset of sore throat not associated with new upper respiratory symptoms*? : No, COVID testing is recommended (End Screening) Symptom Onset Date of symptom onset: 10/30/20 Testing Recommendation Endpoint Is testing recommended? : Recommended to test PLAN Endpoint recommendation: Symptomatic testing indicated, advised to be swabbed for COVID-19 Only , sent to [facility] located at [address] [place] [address] ([facility]). An appointment is required for testing, please call [phone] Tuesday-Tuesday 7am to 6pm and Tuesday & Tuesday 9am to 4pm to schedule an appointment. Testing hours are 8am - 4:30pm daily. You can also schedule via your Patient Online Services account. and Please avoid using public transportation per CDC recommendation. If you donot have personal transportation please self-quarantine until a personal transportation option is available. Standard Care Points -Get a COVID -19 vaccine as soon as you can if not fully vaccinated. -Wash hands frequently with soap and water, use hand orthopaedic nurse if soap and water aren't available. -Wear [...] any new or worsening symptoms. Symptomatic Carepoints: Stay home and separate yourself from others and stay in a specific sick room if able. Avoid sharing personal or household items. Rest. Hydrate. Take Acetaminophen/Ibuprofen asneeded to control fever and muscles aches. Use [...] are equally effective. Use a humidifier. If you have received a negative COVID-19 test result and continue to have new or worsening symptoms after 72 hours please call the COVID Nurse Line to assess if you need repeat testing or reach out to your Primary Care Provider for guidance. Education: Patient/caregiver able to teach back Patient agreeable to plan of care: Yes The following references were used: [facility] novel coronavirus (COVID- 19) resources CDC web site https://www.cdc.gov/coronavirus/2019-ncov/summary.html Nursing judgement documented in this encounter Plan of Treatment Not on filedocumented as of this encounter Visit Diagnoses Not on filedocumented in this encounter Additional Health Concerns Infection Onset Date Last Indicated Resolved Time COVID19 Pending 11/03/2020 11/03/2020 11/04/2020 2:25 AM CDT documented as of this encounter Care Teams Criminal Judge Relationship Specialty Start Date End Date Elsewhere, Pcp PCP - General Family Medicine 01/10/20 documented as of this encounter
--- OUTSIDE RECORDS SUMMARY | 2022-01-05 18:45 | XMS_ITS | Encounter Summary ---
:1975 Author Organization [facility] Address [address] [place] [address] Care Team Providers Name Role Phone Elsewhere, Pcp Primary Care Provider Unavailable Reason for Visit Reason Comments COVID Nurse Line Encounter Details Date Type Department Care Team Description 03/12/2021 Clinical Communication Division of Gem Rosas C OVID Nurse Deanna [facility] Internal R.N. [facility] [phone] [place], in (Work) [place], [place] [address] [place] [address] Social History Tobacco Use Types Packs/Day Years Used Date Smoking Tobacco: Never Sex Assigned at Date Recorded Not on file documented as of this encounter Miscellaneous Notes Telephone Encounter - Gem Rosas, RJohannaN. - 03/12/2021 2:49 PM CST COVID-19 Nurse Line Screening ASSESSMENT Initial Screening Pathway Select appropriate pathway: : Adult In the last 48 hours, have you had a fever* OR symptoms that are unrelated to a preexisting illness?: New cough, New nausea, New chills, New muscle aches, New headache (congestion, runny nose, fatigue) Date of symptom onset: 03/11/21 COVID Symptomatic Screening Do you have any of the following urgent symptoms?: No urgent symptoms noted (Continue Screening) Have you received a COVID-19 vaccine in the last 72 hours? : No vaccine received (Continue Screening) Have you had close contact* with a person who has tested positive with COVID-19 in the past 14 days?: Yes (Continue Screening) Have you tested positive for COVID-19 in the last 45 days?: No. COVID-19 testing is indicated (Continue Screening for Additional Testing) Additional Screening for Influenza, RSV and Strep Select appropriate region: : [place] Do you have any of the following respiratory syntonical virus (RSV) complications? : No complications noted (Continue Screening) Do you have any of the following high risk influenza criteria?: No criteria noted (Continue Screening) Are all of the following Strep criteria met? : Age is between 18-75 years, No, all criteria are not met. Influenza tesing is indicated. (End Screening) Symptom Onset Date of symptom onset: 03/11/21 Testing Recommendation Endpoint Is testing recommended? : Recommended to test Further Triage Needs Any further triage needs? : No further concerns noted. PLAN Endpoint recommendation: Symptomatic testing indicated, advised to be swabbed for COVID-19 and Influenza, sent to [facility] located at [address] [place] [address] ([facility]). An appointment is required for testing, please call [phone] Tuesday-Tuesday 7am to 6pm and Tuesday & Tuesday 9am to 4pm to schedule an appointment. Testing hours are 8am - 4:30pm daily. You can also schedule via your Patient Online Services account., Please avoid using public transportation per CDC recommendation. If you do not have personal transportation please self-quarantine until a personal transportation option is available. Standard Care Points -Get a COVID -19 vaccine as soon as you can if not fully vaccinated. -Wash hands frequently with soap and water, use hand home care coordinator if soap and water aren't available. -Wear [...] control fever and muscles aches. Use over thecounter medications as needed for other symptoms. Exposure Carepoints: If you have completed your COVID-19 vaccination series, quarantine is not needed if you remain without symptoms. Wear a mask for 10 days after last contact. Continue to wear a mask in indoor spaces when community transmission is high. Education: Patient/caregiver able to teach back Patient agreeable to plan of care: Yes The following references were used: [facility] novel coronavirus (COVID- 19) resources Nursing judgement CAL INTERPRETER documented in this encounter Plan of Treatment Not on filedocumented as of this encounter Visit Diagnoses Not on filedocumented in this encounter Care Teams Utility Pipe Layer Relationship Specialty Start Date End Date Elsewhere, Pcp PCP - General Family Medicine 01/10/20 documented as of this encounter
--- OUTSIDE RECORDS SUMMARY | 2022-01-05 18:45 | XMS_ITS | Encounter Summary ---
:1975 Author Organization [facility] Address [address] [place] [address] Care Team Providers Name Role Phone Elsewhere, Pcp Primary Care Provider Unavailable Reason for Visit Reason Onset Date Comments Testing For Upper Respiratory Virus Symptoms 11/03/2020 Encounter Details Date Type Department Care Team Description 11/03/2020 External Outreach Department of [facility] Pasha Hines Contact With And MedicineAlbaro D.O. (Suspected) Exposure Clinic, in [place], [address] To COVID-19 (Primary [place], [place] Dx) [address] [address] [place], [place] [phone] [address] (Work) [phone] Social History Tobacco Use Types Packs/Day Years Used Date Smoking Tobacco: Never Sex Assigned at Date Recorded Not on file documented as of this encounter Progress Notes Barbara Stout L.P.N. - 11/03/2020 1:29 PM CDT Encounter created for symptomatic infectious disease screening with possible COVID, Influenza, RSV, and/or Group A Strep testing. documented in this encounter Miscellaneous Notes Result Encounter Note - Yareli Cortez R.N., CLC - 11/04/2020 9:37 AM CDT The patient will be contacted if they are eligible for Monoclonal Antibody Infusion (MASS 1 or greater) and/or Remote Patient Monitoring (MASS 3 or greater). The [facility] Covid Care Team (CCT) sends general guidance about COVID-19 to all patients by letter or portal, except when a patient is hospitalized or resides in a [place] health care facility. [facility] will call all adult patients at highest risk for severe complications of COVID-19 (MASS 3 or greater), those without an online services account, and those who require an lang interpreter. Any patient with a MASS score 1 [...] to reinforce when to se ek care. [facility] encourages patients to follow up with their PCP with questions, worsening symptoms, or for symptom management. For questions, contact the [facility] Cov[facility] Care Team ([facility]WCCT): Pager: [phone] In basket: P RST/[facility] COVID-19 POSITIVE Covid Care e-consult Components of the Monoclonal Antibody Selection Score (MASS) Compromised Immune System/Transplant = 4 points Chronic Kidney Disease on Dialysis = 4 points Age greater than or equal to 55 and chronic pulmonary disease = 3 points Age greater than or equal to 65 = 2 points Age greater than or equal to = 2 points Diabetes = 2 points Age greater than or equal to 55 AND cardiovascular disease = 2 points Age greater than or equal to 55 and hypertension = 1 point NOTE: At the time of testing, patients are instructed to obtain the result by calling the [employer] result line or by checking the online services account. documented in this encounter Plan of Treatment Not on filedocumented as of this encounter Procedures Procedure Name Priority Date/Time Associated Diagnosis Comme nts SARS CORONAVIRUS-2 Routine 11/03/2020 1:53 PM Contact With And Results for this RNA, V CDT (Suspected) Exposure procedu re are in To COVID-19 the results section. documented in this encounter Results (ABNORMAL) SARS Coronavirus-2 RNA, V Symptomatic (11/03/2020 1:53 PM CDT) [facility] Method Time Signature SARS-CoV-2 Swab, 11/04/2020 MKTO Specimen Nasopharynx 2:23 AM CDT Source SARS CoV-2 Detected (A) Undetected 11/04/2020 MKTO RNA, TMA 2:23 AM CDT Comment: SARS-CoV-2 RNA present. ----ADDITIONAL INFORMATION---- This molecular amplification test was pe rformed using the Aptima SARS-CoV-2 assay ([employer] on the [place] [employer])s tem under emergency use authorization (EUA) by the U.S. Food and Drug Administ ration. Fact sheets for this EUA assay can be fo und at the following links: For Healthcare Providers: https://www.fd a.gov/media/140037/download For Patients: https://www.fda.gov/media/ 048552/download Specimen Anatomical Collection Method Collection Time Receive d Time (Source) Location / / Volume Laterality Varies 11/03/2020 1:53 PM 8:54 (Nasopharynx) CDT PM CDT Pasha Hines D.O. LAB MICROBIOLOGY - GENERAL O ISAIAH Performing Organization Address City/State/[facility] Phon e Number [facility]- [address] [place] [address] [place] [address] System [address] documented in this encounter Visit Diagnoses Diagnosis Contact With And (Suspected) Exposure To COVID-19 - Primary documented in this encounter Additional Health Concerns Infection Onset Date Last Indicated Resolved Time COVID19 Pending 11/03/2020 11/03/2020 11/04/2020 2:25 AM CDT documented as of this encounter Care Teams Advertising Copy Writer Relationship Specialty Start Date End Date Elsewhere, Pcp PCP - General Family Medicine 01/10/20 documented as of this encounter
--- OUTSIDE RECORDS SUMMARY | 2022-01-05 18:45 | XMS_ITS | Encounter Summary ---
:1975 Author Organization [facility] Address [address] [place] [address] Care Team Providers Name Role Phone Unavailable Primary Care Provider Unavailable Encounter Details Date Type Department Care Team Description 05/07/2008 Hospital Encounter HX NO MAPPING Lauren Mendes Au. D. Social History Tobacco Use Types Packs/Day Years Used Date Smoking Tobacco: Never Assessed Sex Assigned at Date Recorded Not on file documented as of this encounter Plan of Treatment Not on filedocumented as of this encounter Visit Diagnoses Not on filedocumented in this encounter
--- OUTSIDE RECORDS SUMMARY | 2022-01-05 18:45 | XMS_ITS | Encounter Summary ---
:1975 Author Organization [facility] Address [address] [place] [address] Care Team Providers Name Role Phone Unavailable Primary Care Provider Unavailable Encounter Details Date Type Department Care Team Description 02/15/2015 Hospital Encounter [facility] Monika Mondragon APRN, C.N.P., M.S.N. [address] [place] [phone] (Wo rk) Social History Tobacco Use Types Packs/Day Years Used Date Smoking Tobacco: Never Assessed Sex Assigned at Date Recorded Not on file documented as of this encounter Last Filed Vital Signs Vital Sign Reading Time Taken Comments Blood Pressure 108/68 02/15/2015 10:07 AM [employer] Pulse 80 02/15/2015 10:07 AM [employer] Temperature - - Respiratory Rate 13 02/15/2015 10:07 AM [employer] Oxygen Saturation - - Inhaled Oxygen Concentration - - Weight 69.8 kg (153 lb 14.1 oz) 02/15/2015 10:07 AM [employer] Height - - Body Mass Index - - documented in this encounter Progress Notes Monika Mondragon APRN, DOUGH BRAKER - 02/15/2015 9:05 AM CST [id number] CHIEF COMPLAINT/REASON FOR VISIT Sinus infection. HISTORY OF PRESENT ILLNESS Very pleasant 39-year-old female presents with intermittent sinus pain and pressure, headache acrossthe forehead and ears feeling plugged on and off since Thanks. Things are improving, but now she feels the worse she has felt. She is having bright green mucus from her nose and coughing from herthroat and severe sinus pressure. Denies any high fevers, headache, chills, chest pain, neck pain, shortness of breath, abdominal pain, nausea, vomiting, or diarrhea. MEDICATIONS Reviewed. See EMR medication list. ALLERGIES Reviewed. See EMR allergy list. SYSTEMS REVIEW Negative except for pertinent positives in HPI. PAST MEDICAL/SURGICAL HISTORY See EMR history and procedures. SOCIAL HISTORY Reviewed. No changes. FAMILY HISTORY Reviewed. No changes. VITAL SIGNS Refer to EMR vital signs flow sheet. PHYSICAL EXAMINATION GENERAL: Mildly ill-appearing adult. No distress. HEENT: Left TM with severe erythema, edema. No light reflex, tender. Right TM without erythema, edema or exudate. Nose: Bilateral turbinates, erythematous with green drainage seen. Oropharynx moderately injected with copious amounts of green drainage. NECK: Supple. Trachea midline. No lymphadenopathy. CARDIAC: Regular rate and rhythm. Normal S1, S2. No murmurs, rubs, or clicks. LUNGS: Lungs clear without wheezing, rhonchi, or rales. ABDOMEN: Soft. No tenderness on palpation. Normoactive bowel sounds. IMPRESSION/REPORT/PLAN 1. Acute otitis media. Amoxicillin prescribed for infection. Education provided regarding otitis media and home care handouts provided. Education regarding medication and side effects discussed. Strongly patient to follow up with primary care provider if symptoms did not improve or worsened over the next 5 to 7 days. Go to ER if patient develops high fever, chills, headache, neck pain, chest pain, shortness of breath, abdominal pain, nausea, vomiting, or diarrhea. Patient and mother verbalized good understanding of these instructions. 2. Acute sinusitis. Augmentin prescribed as above. Education regarding medication and side effects discussed in detail. Education regarding sinusitis and home care and handouts provided. Perform nasal rinses, use antihistamine or nasal spray for nasal symptoms, antibiotics as prescribed until gone. Encouraged patient to go to ER if she develops a high fever 102.7 or greater, chills, severe headache, neck pain, chest pain, shortness of breath, abdominal pain, nausea, vomiting, or diarrhea. Patient verbalized good understanding of these instructions. Diflucan or fluconazole prescribed. Patient statesshe usually gets yeast infections after antibiotics. Education regarding medication and side effectsdiscussed in detail. Did have patient take 1 tablet at the sinus symptoms and then again in 4 days if needed, and patient verbalized good understanding of all instructions. 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 Gatherer Intake/History Entered On: 02/15/2015 10:10 [employer] Performed On: 02/15/2015 10:07 [employer] by JIMMY CARIAS LPN Intake Chief Complaint : possible sinus infection, on and off since thanksgi, ears feel plugged and arepainful, mucous is bright green, sor ethroat, sinus pressure Temperature Oral : 36.6 DegC(Converted to: 97.9 DegF) Peripheral Pulse Rate : 80 /min Respiratory Rate : 13 /min (LOW) Heart Rhythm : Regular Systolic Blood Pressure : 108 mmHg Diastolic Blood Pressure : 68 mmHg NIBP Mean : 81 mmHg BP Location : Right upper extremity Blood Pressure Cuff Size : Regular Actual Weight : 69.8 kg(Converted to: 153 lb 14 oz) Dosing Weight Clinic : 69.8 kg JIMMY CARIAS LPN - 02/15/2015 10:07 [employer] General Info Languages : Slovenian Is Patient Female and 13-50 no hysterectomy : Yes Status : Patient denies Are you ? : No JIMMY CARIAS LPN - 02/15/2015 10:07 [employer] Subjective Pain Symptoms : Yes JIMMY CARIAS LPN - 02/15/2015 10:07 [employer] Pain Scale Pain Scale Verbal 0-10 : Open JIMMY CARIAS LPN - 02/15/2015 10:07 [employer] Pain Pain Assessment Grid Pain 1 Pain 2 Location : Other: sinus Quality : Pressure JIMMY CARIAS LPN - 02/15/2015 10:07 [employer] JIMMY CARIAS LPN - 02/15/2015 10:07 [employer] Dependent Habits Smoking Status : Never smoker Tobacco 2A : No JIMMY CARIAS LPN - 02/15/2015 10:07 [employer] Source: [facility] POWERCHART Document Id: [id number] [employer]!32 [employer] documented in this encounter Plan of Treatment Not on filedocumented as of this encounter Visit Diagnoses Not on filedocumented in this encounter
--- OUTSIDE RECORDS SUMMARY | 2022-01-05 18:45 | XMS_ITS | Encounter Summary ---
:1975 Author Organization [facility] Address [address] [place] [address] Care Team Providers Name Role Phone Unavailable Primary Care Provider Unavailable Encounter Details Date Type Department Care Team Description 04/22/2004 Hospital Encounter [facility]X [facility] Ariana Ramírez M.D. [address] [place], [place] [address] (Wo rk) Social History Tobacco Use Types Packs/Day Years Used Date Smoking Tobacco: Never Assessed Sex Assigned at Date Recorded Not on file documented as of this encounter Plan of Treatment Not on filedocumented as of this encounter Visit Diagnoses Not on filedocumented in this encounter
--- OUTSIDE RECORDS SUMMARY | 2022-01-05 18:45 | XMS_ITS | Encounter Summary ---
:1975 Author Organization [facility] Address [address] [place] [address] Care Team Providers Name Role Phone Unavailable Primary Care Provider Unavailable Encounter Details Date Type Department Care Team Description 11/10/2005 Hospital Encounter [facility]X [facility] DERM Charis Brooke M.D. [facility] [address] (Wo rk) Social History Tobacco Use Types Packs/Day Years Used Date Smoking Tobacco: Never Assessed Sex Assigned at Date Recorded Not on file documented as of this encounter Plan of Treatment Not on filedocumented as of this encounter Visit Diagnoses Not on filedocumented in this encounter
--- OUTSIDE RECORDS SUMMARY | 2022-01-05 18:45 | XMS_ITS | Encounter Summary ---
:1975 Author Organization [facility] Address [address] [place] [address] Care Team Providers Name Role Phone Elsewhere, Pcp Primary Care Provider Unavailable Encounter Details Date Type Department Care Team Description 11/03/2020 Admin Visit Department of Family Medicine, [address] [address] [facility] [phone] Social History Tobacco Use Types Packs/Day Years [...] documented as of this encounter Care Teams Network Operations Lead Relationship Specialty Start Date End Date Elsewhere, Pcp PCP - General Family Medicine 01/10/20 documented as of this encounter
--- OUTSIDE RECORDS SUMMARY | 2022-01-05 18:45 | XMS_ITS | Encounter Summary ---
:1975 Author Organization [facility] Address [address] [place] [address] Care Team Providers Name Role Phone Unavailable Primary Care Provider Unavailable Encounter Details Date Type Department Care Team Description 03/29/2004 Hospital Encounter [facility] Danie Motley M.D. [address] [place] [address] (Wo rk) Social History Tobacco Use Types Packs/Day Years Used Date Smoking Tobacco: Never Assessed Sex Assigned at Date Recorded Not on file documented as of this encounter Plan of Treatment Not on filedocumented as of this encounter Visit Diagnoses Not on filedocumented in this encounter
--- OUTSIDE RECORDS SUMMARY | 2022-01-05 18:45 | XMS_ITS | Encounter Summary ---
:1975 Author Organization [facility] Address [address] [place] [address] Care Team Providers Name Role Phone Unavailable Primary Care Provider Unavailable Encounter Details Date Type Department Care Team Description 08/22/2008 Hospital Encounter [facility] Ariana Ramírez M.D. [address] [place], [place] [address] (Wo rk) Social History Tobacco Use Types Packs/Day Years Used Date Smoking Tobacco: Never Assessed Sex Assigned at Date Recorded Not on file documented as of this encounter Plan of Treatment Not on filedocumented as of this encounter Visit Diagnoses Not on filedocumented in this encounter
--- OUTSIDE RECORDS SUMMARY | 2022-01-05 18:45 | XMS_ITS | Encounter Summary ---
:1975 Author Organization [facility] Address [address] [place] [address] Care Team Providers Name Role Phone Unavailable Primary Care Provider Unavailable Encounter Details Date Type Department Care Team Description 08/07/2008 Hospital Encounter [facility] Ariana Ramírez M.D. [address] [place], [place] [address] (Wo rk) Social History Tobacco Use Types Packs/Day Years Used Date Smoking Tobacco: Never Assessed Sex Assigned at Date Recorded Not on file documented as of this encounter Plan of Treatment Not on filedocumented as of this encounter Visit Diagnoses Not on filedocumented in this encounter
--- OUTSIDE RECORDS SUMMARY | 2022-01-05 18:45 | XMS_ITS | Encounter Summary ---
:1975 Author Organization [facility] Address [address] [place] [address] Care Team Providers Name Role Phone Unavailable Primary Care Provider Unavailable Encounter Details Date Type Department Care Team Description 09/12/2008 Hospital Encounter [facility] Ariana Ramírez M.D. [address] [place], [place] [address] (Wo rk) Social History Tobacco Use Types Packs/Day Years Used Date Smoking Tobacco: Never Assessed Sex Assigned at Date Recorded Not on file documented as of this encounter Plan of Treatment Not on filedocumented as of this encounter Visit Diagnoses Not on filedocumented in this encounter
--- OUTSIDE RECORDS SUMMARY | 2022-01-05 18:45 | XMS_ITS | Encounter Summary ---
:1975 Author Organization [facility] Address [address] [place] [address] Care Team Providers Name Role Phone Elsewhere, Pcp Primary Care Provider Unavailable Encounter Details Date Type Department Care Team Description 05/26/2021 Admin Visit Department of Family Medicine, [address] [address] [facility] [phone] Social History Tobacco Use Types Packs/Day Years Used Date Smoking Tobacco: Never Sex Assigned at Date Recorded Not on file documented as of this encounter Plan of Treatment Not on filedocumented as of this encounter Visit Diagnoses Not on filedocumented in this encounter Additional Health Concerns Infection Onset Date Last Indicated Resolved Time COVID19 Pending 05/26/2021 05/26/2021 05/26/2021 10:48 PM CDT documented as of this encounter Care Teams Salon Manager Relationship Specialty Start Date End Date Elsewhere, Pcp PCP - General Family Medicine 01/10/20 documented as of this encounter
--- OUTSIDE RECORDS SUMMARY | 2022-01-05 18:45 | XMS_ITS | Encounter Summary ---
:1975 Author Organization [facility] Address [address] [place] [address] Care Team Providers Name Role Phone Unavailable Primary Care Provider Unavailable Encounter Details Date Type Department Care Team Description 02/10/2005 Hospital Encounter [facility]X [facility] [place] Provider, Mi agata Social History Tobacco Use Types Packs/Day Years Used Date Smoking Tobacco: Never Assessed Sex Assigned at Date Recorded Not on file documented as of this encounter Plan of Treatment Not on filedocumented as of this encounter Visit Diagnoses Not on filedocumented in this encounter
--- OUTSIDE RECORDS SUMMARY | 2022-01-05 18:45 | XMS_ITS | Encounter Summary ---
:1975 Author Organization [facility] Address [address] [place] [address] Care Team Providers Name Role Phone Unavailable Primary Care Provider Unavailable Encounter Details Date Type Department Care Team Description 07/01/2008 Hospital Encounter [facility]X [facility] FAMILYPRA Mariann Alejandra M.D. Social History Tobacco Use Types Packs/Day Years Used Date Smoking Tobacco: Never Assessed Sex Assigned at Date Recorded Not on file documented as of this encounter Plan of Treatment Not on filedocumented as of this encounter Visit Diagnoses Not on filedocumented in this encounter
--- OUTSIDE RECORDS SUMMARY | 2022-01-05 18:45 | XMS_ITS | Encounter Summary ---
:1975 Author Organization [facility] Address [address] [place] [address] Care Team Providers Name Role Phone Unavailable Primary Care Provider Unavailable Encounter Details Date Type Department Care Team Description 11/28/2007 Hospital Encounter [facility]X [facility] FAMILYPRA Mariann Alejandra M.D. Social History Tobacco Use Types Packs/Day Years Used Date Smoking Tobacco: Never Assessed Sex Assigned at Date Recorded Not on file documented as of this encounter Plan of Treatment Not on filedocumented as of this encounter Visit Diagnoses Not on filedocumented in this encounter
--- OUTSIDE RECORDS SUMMARY | 2022-01-05 18:45 | XMS_ITS | Encounter Summary ---
:1975 Author Organization [facility] Address [address] [place] [address] Care Team Providers Name Role Phone Unavailable Primary Care Provider Unavailable Encounter Details Date Type Department Care Team Description 12/11/2007 Hospital Encounter HX NO MAPPING Lauren Mendes Au. D. Social History Tobacco Use Types Packs/Day Years Used Date Smoking Tobacco: Never Assessed Sex Assigned at Date Recorded Not on file documented as of this encounter Plan of Treatment Not on filedocumented as of this encounter Visit Diagnoses Not on filedocumented in this encounter
--- OUTSIDE RECORDS SUMMARY | 2022-01-05 18:45 | XMS_ITS | Encounter Summary ---
:1975 Author Organization [facility] Address [address] [place] [address] Care Team Providers Name Role Phone Unavailable Primary Care Provider Unavailable Encounter Details Date Type Department Care Team Description 04/22/2008 Hospital Encounter [facility]X [facility] MRI Provider, Historic al Social History Tobacco Use Types Packs/Day Years Used Date Smoking Tobacco: Never Assessed Sex Assigned at Date Recorded Not on file documented as of this encounter Plan of Treatment Not on filedocumented as of this encounter Visit Diagnoses Not on filedocumented in this encounter
--- OUTSIDE RECORDS SUMMARY | 2022-01-05 18:45 | XMS_ITS | Encounter Summary ---
:1975 Author Organization [facility] Address [address] [place] [address] Care Team Providers Name Role Phone Elsewhere, Pcp Primary Care Provider Unavailable Reason for Visit Reason Onset Date Comments Outpatient COVID-19 Testing 01/11/2020 Encounter Details Date Type Department Care Team Description 01/11/2020 External Outreach Department of Pasha Hines Infect ion Upper Internal Medicine in J[facility] D[facility] Respiratory ([place], [place] [address] Dx) [address] [place] [phone] Social History Tobacco Use Types Packs/Day Years Used Date Smoking Tobacco: Never Sex Assigned at Date Recorded Not on file documented as of this encounter Progress Notes Addis So R.N. - 01/11/2020 1:11 PM CST Encounter created for the drive-through COVID-19 testing. E REBUILDER documented in this encounter Plan of Treatment Not on filedocumented as of this encounter Procedures Procedure Name Priority Date/Time Associated Diagnosis Comme nts SARS CORONAVIRUS-2 Routine 01/11/2020 2:55 PM Infection Upper Results for this RNA, V ANODE REBUILDER Respiratory procedure are i n the results section. documented in this encounter Results SARS Coronavirus-2 RNA, V Symptomatic (01/11/2020 2:55 PM ANODE REBUILDER) [facility] Method Time Signature SARS-CoV-2 Swab, 01/12/2020 MKTO Specimen Nasopharynx 5:17 PM ANODE REBUILDER Source SARS CoV-2 Undetected Undetected 01/12/2020 MKTO RNA, TMA 5:17 PM ANODE REBUILDER Comment: SARS-CoV-2 RNA absent. This result does not rule out COVID-19 in the patient, as the sensitivity of the test depends o n the timing of the specimen collection and the quality of the specim en. Result should be correlated with patient's history and clinical presentat ion. ----ADDITIONAL INFORMATION---- This test is performed using the Aptima SARS-CoV-2 assay ([employer] which has received Emergency Use Authori zation (EUA) by the U.S. Food and Drug Administration. Fact sheets for this Emergency Use Autho rization (EUA) assay can be found at the following links: For Healthcare Providers: https://www.[employer] a.gov/media/350473/download For Patients: https://www.fda.gov/media/ 218546/download Specimen Anatomical Collection Method Collection Time Receive d Time (Source) Location / / Volume Laterality Varies 01/11/2020 2:55 PM 0 8:57 (Nasopharynx) ANODE REBUILDER AM ANODE REBUILDER Pasha Hines D.O. LAB MICROBIOLOGY - GENERAL O RDERABLES Performing Organization Address [facility]/State/[facility] Code Phon e Number [facility]- [address] [place] [phone] [place] [address] [place] [address] System [address] documented in this encounter Visit Diagnoses Diagnosis Infection Upper Respiratory - Primary documented in this encounter Additional Health Concerns Infection Onset Date Last Indicated Resolved Time COVID19 Pending 01/11/2020 01/11/2020 01/12/2020 5:18 PM ANODE REBUILDER documented as of this encounter Care Teams Technical Solution Architect Relationship Specialty Start Date End Date Elsewhere, Pcp PCP - General Family Medicine 01/10/20 documented as of this encounter
--- OUTSIDE RECORDS SUMMARY | 2022-01-05 18:46 | XMS_ITS | Encounter Summary ---
:1975 Author Organization [facility] Address [address] [place] [address] Care Team Providers Name Role Phone Unavailable Primary Care Provider Unavailable Encounter Details Date Type Department Care Team Description 01/31/2003 Hospital Encounter [facility]X [facility] Ariana Ramírez M.D. [address] [place], [place] [address] (Wo rk) Social History Tobacco Use Types Packs/Day Years Used Date Smoking Tobacco: Never Assessed Sex Assigned at Date Recorded Not on file documented as of this encounter Plan of Treatment Not on filedocumented as of this encounter Visit Diagnoses Not on filedocumented in this encounter
--- OUTSIDE RECORDS SUMMARY | 2022-01-05 18:46 | XMS_ITS | Encounter Summary ---
:1975 Author Organization [facility] Address [address] [place] [address] Care Team Providers Name Role Phone Unavailable Primary Care Provider Unavailable Encounter Details Date Type Department Care Team Description 03/29/2004 Hospital Encounter [facility]X [facility] URGENTCAR Radha Howe M.D. [address] [place], [place] [address] (Wo rk) Social History Tobacco Use Types Packs/Day Years Used Date Smoking Tobacco: Never Assessed Sex Assigned at Date Recorded Not on file documented as of this encounter Plan of Treatment Not on filedocumented as of this encounter Visit Diagnoses Not on filedocumented in this encounter
--- OUTSIDE RECORDS SUMMARY | 2022-01-05 18:46 | XMS_ITS | Encounter Summary ---
:1975 Author Organization [facility] Address [address] [place] [address] Care Team Providers Name Role Phone Unavailable Primary Care Provider Unavailable Encounter Details Date Type Department Care Team Description 08/06/2003 Hospital Encounter [facility]X [facility] DERM Charis Brooke M.D. [address] [place] [address] (Wo rk) Social History Tobacco Use Types Packs/Day Years Used Date Smoking Tobacco: Never Assessed Sex Assigned at Date Recorded Not on file documented as of this encounter Plan of Treatment Not on filedocumented as of this encounter Visit Diagnoses Not on filedocumented in this encounter
--- OUTSIDE RECORDS SUMMARY | 2022-01-05 18:46 | XMS_ITS | Encounter Summary ---
:1975 Author Organization [facility] Address [address] [place] [address] Care Team Providers Name Role Phone Unavailable Primary Care Provider Unavailable Encounter Details Date Type Department Care Team Description 04/09/2003 Hospital Encounter [facility]X [facility] Ariana Ramírez M.D. [address] [place], [place] [address] (Wo rk) Social History Tobacco Use Types Packs/Day Years Used Date Smoking Tobacco: Never Assessed Sex Assigned at Date Recorded Not on file documented as of this encounter Plan of Treatment Not on filedocumented as of this encounter Visit Diagnoses Not on filedocumented in this encounter
--- OUTSIDE RECORDS SUMMARY | 2022-01-05 18:46 | XMS_ITS | Encounter Summary ---
:1975 Author Organization [facility] Address [address] [place] [address] Care Team Providers Name Role Phone Unavailable Primary Care Provider Unavailable Encounter Details Date Type Department Care Team Description 07/24/2003 Hospital Encounter [facility]X [facility] URGENTCAR Abel Troncoso W, P.A. [address] [place] [address] (Wo rk) Social History Tobacco Use Types Packs/Day Years Used Date Smoking Tobacco: Never Assessed Sex Assigned at Date Recorded Not on file documented as of this encounter Plan of Treatment Not on filedocumented as of this encounter Visit Diagnoses Not on filedocumented in this encounter
--- OUTSIDE RECORDS SUMMARY | 2022-01-05 18:46 | XMS_ITS | Encounter Summary ---
:1975 Author Organization [facility] Address [address] [place] [address] Care Team Providers Name Role Phone Unavailable Primary Care Provider Unavailable Encounter Details Date Type Department Care Team Description 02/25/2003 Hospital Encounter [facility]X [facility] FAMILYPRA Mariann Alejandra M.D. Social History Tobacco Use Types Packs/Day Years Used Date Smoking Tobacco: Never Assessed Sex Assigned at Date Recorded Not on file documented as of this encounter Plan of Treatment Not on filedocumented as of this encounter Visit Diagnoses Not on filedocumented in this encounter
--- OUTSIDE RECORDS SUMMARY | 2022-01-05 18:46 | XMS_ITS | Encounter Summary ---
:1975 Author Organization [facility] Address [address] [place] [address] Care Team Providers Name Role Phone Unavailable Primary Care Provider Unavailable Encounter Details Date Type Department Care Team Description 12/12/2003 Hospital Encounter [facility]X [facility] FAMILYPRA Mariann Alejandra M.D. Social History Tobacco Use Types Packs/Day Years Used Date Smoking Tobacco: Never Assessed Sex Assigned at Date Recorded Not on file documented as of this encounter Plan of Treatment Not on filedocumented as of this encounter Visit Diagnoses Not on filedocumented in this encounter
--- OUTSIDE RECORDS SUMMARY | 2022-01-05 18:47 | XMS_ITS | Encounter Summary ---
:1975 Author Organization [facility] Address [address] [place] [address] Care Team Providers Name Role Phone Unavailable Primary Care Provider Unavailable Encounter Details Date Type Department Care Team Description 05/17/2001 Hospital Encounter [facility] FAMILYPRA Mariann Alejandra M.D. Social History Tobacco Use Types Packs/Day Years Used Date Smoking Tobacco: Never Assessed Sex Assigned at Date Recorded Not on file documented as of this encounter Plan of Treatment Not on filedocumented as of this encounter Visit Diagnoses Not on filedocumented in this encounter
--- OUTSIDE RECORDS SUMMARY | 2022-01-05 18:47 | XMS_ITS | Encounter Summary ---
:1975 Author Organization [facility] Address [address] [place] [address] Care Team Providers Name Role Phone Unavailable Primary Care Provider Unavailable Encounter Details Date Type Department Care Team Description 12/03/2002 Hospital Encounter [facility] Ariana Ramírez M.D. [address] [place], [place] [address] (Wo rk) Social History Tobacco Use Types Packs/Day Years Used Date Smoking Tobacco: Never Assessed Sex Assigned at Date Recorded Not on file documented as of this encounter Plan of Treatment Not on filedocumented as of this encounter Visit Diagnoses Not on filedocumented in this encounter
--- OUTSIDE RECORDS SUMMARY | 2022-01-05 18:47 | XMS_ITS | Encounter Summary ---
:1975 Author Organization [facility] Address [address] [place] [address] Care Team Providers Name Role Phone Unavailable Primary Care Provider Unavailable Encounter Details Date Type Department Care Team Description 09/12/2001 Hospital Encounter [facility] Immanuel Sesay M.D. [address] [place] [address] [place], [place] [address] (Wo rk) Social History Tobacco Use Types Packs/Day Years Used Date Smoking Tobacco: Never Assessed Sex Assigned at Date Recorded Not on file documented as of this encounter Plan of Treatment Not on filedocumented as of this encounter Visit Diagnoses Not on filedocumented in this encounter
--- OUTSIDE RECORDS SUMMARY | 2022-01-05 18:47 | XMS_ITS | Encounter Summary ---
:1975 Author Organization [facility] Address [address] [place] [address] Care Team Providers Name Role Phone Unavailable Primary Care Provider Unavailable Encounter Details Date Type Department Care Team Description 04/11/2000 Hospital Encounter [facility] FAMILYPRA Eliel Brooke M.D. [address] [place], [place] [address] Social History Tobacco Use Types Packs/Day Years Used Date Smoking Tobacco: Never Assessed Sex Assigned at Date Recorded Not on file documented as of this encounter Plan of Treatment Not on filedocumented as of this encounter Visit Diagnoses Not on filedocumented in this encounter
--- OUTSIDE RECORDS SUMMARY | 2022-01-05 18:47 | XMS_ITS | Encounter Summary ---
:1975 Author Organization [facility] Address [address] [place] [address] Care Team Providers Name Role Phone Unavailable Primary Care Provider Unavailable Encounter Details Date Type Department Care Team Description 04/19/2002 Hospital Encounter [facility] DERM Charis Brooke M.D. [address] [place] [address] (Wo rk) Social History Tobacco Use Types Packs/Day Years Used Date Smoking Tobacco: Never Assessed Sex Assigned at Date Recorded Not on file documented as of this encounter Plan of Treatment Not on filedocumented as of this encounter Visit Diagnoses Not on filedocumented in this encounter
--- OUTSIDE RECORDS SUMMARY | 2022-01-05 18:47 | XMS_ITS | Encounter Summary ---
:1975 Author Organization [facility] Address [address] [place] [address] Care Team Providers Name Role Phone Unavailable Primary Care Provider Unavailable Encounter Details Date Type Department Care Team Description 03/16/2002 Hospital Encounter [facility] DERM Charis Brooke M.D. [address] [place] [address] (Wo rk) Social History Tobacco Use Types Packs/Day Years Used Date Smoking Tobacco: Never Assessed Sex Assigned at Date Recorded Not on file documented as of this encounter Plan of Treatment Not on filedocumented as of this encounter Visit Diagnoses Not on filedocumented in this encounter
--- OUTSIDE RECORDS SUMMARY | 2022-01-05 18:47 | XMS_ITS | Encounter Summary ---
:1975 Author Organization [facility] Address [address] [place] [address] Care Team Providers Name Role Phone Unavailable Primary Care Provider Unavailable Encounter Details Date Type Department Care Team Description 02/29/2000 Hospital Encounter [facility] FAMILYPRA Mariann Alejandra M.D. Social History Tobacco Use Types Packs/Day Years Used Date Smoking Tobacco: Never Assessed Sex Assigned at Date Recorded Not on file documented as of this encounter Plan of Treatment Not on filedocumented as of this encounter Visit Diagnoses Not on filedocumented in this encounter
--- OUTSIDE RECORDS SUMMARY | 2022-01-05 18:47 | XMS_ITS | Encounter Summary ---
:1975 Author Organization [facility] Address [address] [place] [address] Care Team Providers Name Role Phone Unavailable Primary Care Provider Unavailable Encounter Details Date Type Department Care Team Description 08/01/2002 Hospital Encounter [facility]X [facility] URGENTCAR Provider, [facility] Social History Tobacco Use Types Packs/Day Years Used Date Smoking Tobacco: Never Assessed Sex Assigned at Date Recorded Not on file documented as of this encounter Plan of Treatment Not on filedocumented as of this encounter Visit Diagnoses Not on filedocumented in this encounter
--- OUTSIDE RECORDS SUMMARY | 2022-01-05 18:47 | XMS_ITS | Encounter Summary ---
:1975 Author Organization [facility] Address [address] [place] [address] Care Team Providers Name Role Phone Unavailable Primary Care Provider Unavailable Encounter Details Date Type Department Care Team Description 01/25/2003 Hospital Encounter [facility] FAMILYPRA Mariann Alejandra M.D. Social History Tobacco Use Types Packs/Day Years Used Date Smoking Tobacco: Never Assessed Sex Assigned at Date Recorded Not on file documented as of this encounter Plan of Treatment Not on filedocumented as of this encounter Visit Diagnoses Not on filedocumented in this encounter
--- OUTSIDE RECORDS SUMMARY | 2022-01-05 18:47 | XMS_ITS | Encounter Summary ---
:1975 Author Organization [facility] Address [address] [place] [address] Care Team Providers Name Role Phone Unavailable Primary Care Provider Unavailable Encounter Details Date Type Department Care Team Description 07/18/2001 Hospital Encounter [facility] Charis Brooke M.D. [facility] [place] [address] (Wo rk) Social History Tobacco Use Types Packs/Day Years Used Date Smoking Tobacco: Never Assessed Sex Assigned at Date Recorded Not on file documented as of this encounter Plan of Treatment Not on filedocumented as of this encounter Visit Diagnoses Not on filedocumented in this encounter
--- OUTSIDE RECORDS SUMMARY | 2022-01-05 18:47 | XMS_ITS | Encounter Summary ---
:1975 Author Organization [facility] Address [address] [place] [address] Care Team Providers Name Role Phone Unavailable Primary Care Provider Unavailable Encounter Details Date Type Department Care Team Description 11/23/2002 Hospital Encounter [facility] Ariana Ramírez M.D. [address] [place], [place] [address] (Wo rk) Social History Tobacco Use Types Packs/Day Years Used Date Smoking Tobacco: Never Assessed Sex Assigned at Date Recorded Not on file documented as of this encounter Plan of Treatment Not on filedocumented as of this encounter Visit Diagnoses Not on filedocumented in this encounter
--- OUTSIDE RECORDS SUMMARY | 2022-01-05 18:47 | XMS_ITS | Encounter Summary ---
:1975 Author Organization [facility] Address [address] [place] [address] Care Team Providers Name Role Phone Unavailable Primary Care Provider Unavailable Encounter Details Date Type Department Care Team Description 03/07/2001 Hospital Encounter [facility] FAMILYPRA Amaris Greco APRN, C.N.P., M.S.N. Social History Tobacco Use Types Packs/Day Years Used Date Smoking Tobacco: Never Assessed Sex Assigned at Date Recorded Not on file documented as of this encounter Plan of Treatment Not on filedocumented as of this encounter Visit Diagnoses Not on filedocumented in this encounter
--- OUTSIDE RECORDS SUMMARY | 2022-01-05 18:47 | XMS_ITS | Encounter Summary ---
:1975 Author Organization [facility] Address [address] [place] [address] Care Team Providers Name Role Phone Unavailable Primary Care Provider Unavailable Encounter Details Date Type Department Care Team Description 04/05/2000 Hospital Encounter [facility] FAMILYPRA Mariann Alejandra M.D. Social History Tobacco Use Types Packs/Day Years Used Date Smoking Tobacco: Never Assessed Sex Assigned at Date Recorded Not on file documented as of this encounter Plan of Treatment Not on filedocumented as of this encounter Visit Diagnoses Not on filedocumented in this encounter
--- OUTSIDE RECORDS SUMMARY | 2022-01-05 18:47 | XMS_ITS | Encounter Summary ---
:1975 Author Organization [facility] Address [address] [place] [address] Care Team Providers Name Role Phone Unavailable Primary Care Provider Unavailable Encounter Details Date Type Department Care Team Description 10/26/2002 Hospital Encounter [facility] D[facility] Charis Brooke M.D. [address] [place] [address] (Wo rk) Social History Tobacco Use Types Packs/Day Years Used Date Smoking Tobacco: Never Assessed Sex Assigned at Date Recorded Not on file documented as of this encounter Plan of Treatment Not on filedocumented as of this encounter Visit Diagnoses Not on filedocumented in this encounter
--- OUTSIDE RECORDS SUMMARY | 2022-01-05 18:47 | XMS_ITS | Encounter Summary ---
:1975 Author Organization [facility] Address [address] [place] [address] Care Team Providers Name Role Phone Unavailable Primary Care Provider Unavailable Encounter Details Date Type Department Care Team Description 07/13/2001 Hospital Encounter [facility] FAMILYPRA Mariann Alejandra M.D. Social History Tobacco Use Types Packs/Day Years Used Date Smoking Tobacco: Never Assessed Sex Assigned at Date Recorded Not on file documented as of this encounter Plan of Treatment Not on filedocumented as of this encounter Visit Diagnoses Not on filedocumented in this encounter
--- OUTSIDE RECORDS SUMMARY | 2022-01-05 18:47 | XMS_ITS | Encounter Summary ---
:1975 Author Organization [facility] Address [address] [place] [address] Care Team Providers Name Role Phone Unavailable Primary Care Provider Unavailable Encounter Details Date Type Department Care Team Description 06/28/2001 Hospital Encounter [facility]X [facility] FAMILYPRA Mariann Alejandra M.D. Social History Tobacco Use Types Packs/Day Years Used Date Smoking Tobacco: Never Assessed Sex Assigned at Date Recorded Not on file documented as of this encounter Plan of Treatment Not on filedocumented as of this encounter Visit Diagnoses Not on filedocumented in this encounter
--- OUTSIDE RECORDS SUMMARY | 2022-01-05 18:47 | XMS_ITS | Encounter Summary ---
:1975 Author Organization [facility] Address [address] [place] [address] Care Team Providers Name Role Phone Unavailable Primary Care Provider Unavailable Encounter Details Date Type Department Care Team Description 01/24/2003 Hospital Encounter [facility]X [facility] Ariana Ramírez M.D. [address] [place], [place] [address] (Wo rk) Social History Tobacco Use Types Packs/Day Years Used Date Smoking Tobacco: Never Assessed Sex Assigned at Date Recorded Not on file documented as of this encounter Plan of Treatment Not on filedocumented as of this encounter Visit Diagnoses Not on filedocumented in this encounter
[2022-01-05 22:46] LABS: HIV 1/2/P24 Combo Screen* Negative (Negative)
[2022-01-05 22:54] LABS: Hepatitis C Virus Antibody* Negative (Negative)
[2022-01-05 23:38] LABS: Chlamydia DNA Amplified* NOT DETECTED (No Detected); GC DNA Amplified* NOT DETECTED (No Detected)
[2022-01-08 00:44] LABS: Rapid Plasma Reagin (RPR) Non Reactive (Non Reactive)
[2022-01-08 16:28] LABS: Hepa B Virus Surf Ag Conf Non Confirmed (Non Confirmed)
== END 2022-01-05 18:43 | disposition home or self-care (01) ==
PROVIDERS: PCP Family Medicine; Visit Provider Emergency Medicine
DX: Z11.3 Encounter for screening for infections with a predominantly sexual mode of transmission (principal); Z20.2 Contact with and (suspected) exposure to infections with a predominantly sexual mode of transmission
CPT/HCPCS: 86592; 86703; 86803; 87341; 87491; 87591

== ENCOUNTER 2022-03-30 13:44 | Outpatient (CLI) | payer OTHER, SELFPAY ==
[2022-03-30 21:32] LABS: Cholesterol* 244 mg/dL (90-199)
[2022-03-30 21:33] LABS: Glucose* 99 mg/dL (60-115); HDL Cholesterol* 75 mg/dL (>=50); LDL Cholesterol Calculated 146 mg/dL (<100); Triglycerides* 115 mg/dL (40-149)
== END 2022-03-30 13:45 | disposition home or self-care (01) ==
PROVIDERS: PCP Family Medicine; Visit Provider Emergency Medicine
DX: E78.5 Hyperlipidemia, unspecified (principal); Z13.1 Encounter for screening for diabetes mellitus
CPT/HCPCS: 80061; 82947

== ENCOUNTER 2022-05-13 09:35 | Outpatient (CLI) | payer OTHER, SELFPAY | END 2022-05-13 09:36 | disposition home or self-care (01) | LOC: LKVREF 09:38 | PROVIDERS: PCP Family Medicine; Visit Provider Emergency Medicine | DX: Z01.818 Encounter for other preprocedural examination (principal); E78.5 Hyperlipidemia, unspecified; Z13.1 Encounter for screening for diabetes mellitus | CPT/HCPCS: 80048 ==

== ENCOUNTER 2023-02-25 08:58 | Outpatient (CLI) | payer OTHER, SELFPAY ==
--- NOTE | 2023-02-25 09:15 | CRLHL7_ITS ---
For Patients: As a result of the Century Cures Act, medical imaging exams and procedure reports are released immediately into your electronic medical record. You may view this report before your referring provider. If you have questions, please contact your health care provider. BILATERAL SCREENING MAMMOGRAM WITH COMPUTER-AIDED DETECTION AND TOMOSYNTHESIS TECHNIQUE: CC and MLO views were obtained. These mammographic images have been obtained using full-field digital technique. These mammographic images were interpreted with the benefit of computer-aided detection. Breast tomosynthesis was used in this interpretation. COMPARISON FILM: 06/26/2021, 08/03/2019, 01/10/2018. FINDINGS: The breasts are heterogeneously dense, which may obscure small masses. IMPRESSION: There is no radiographic evidence for malignancy. ASSESSMENT: BI-RADS Category 1: Negative RECOMMENDATION: Routine screening mammogram in 1 year. A lay language report of this examination will be provided to the patient. SMITH OLIVAS M.D. Diagnostic Radiologist [email or web address] Transcribed: 02/25/2023, 2:[address]/Dictated by: Smith Olivas MD @ 02/25/2023 1:01:00 PM (Electronically Signed)
== END 2023-02-25 08:59 | disposition home or self-care (01) ==
LOC: MAMMO 08:59
PROVIDERS: PCP Family Medicine; Visit Provider Emergency Medicine
DX: Z12.31 Encounter for screening mammogram for malignant neoplasm of breast (principal); R92.2 Inconclusive mammogram
CPT/HCPCS: 77063; 77067

== ENCOUNTER 2023-04-25 08:12 | Outpatient (CLI) | payer OTHER, SELFPAY | END 2023-04-25 08:13 | disposition home or self-care (01) | LOC: NFLDREF 05-08 08:15 | PROVIDERS: PCP Family Medicine; Referring Provider Family Medicine; Visit Provider Emergency Medicine | DX: E78.5 Hyperlipidemia, unspecified (principal) | CPT/HCPCS: 80053; 80061 ==

== ENCOUNTER 2024-04-03 16:14 | Outpatient (CLI) | payer OTHER, SELFPAY ==
--- NOTE | 2024-04-03 16:20 | CRLHL7_ITS ---
For Patients: As a result of the Century Cures Act, medical imaging exams and procedure reports are released immediately into your electronic medical record. You may view this report before your referring provider. If you have questions, please contact your health care provider. BILATERAL SCREENING MAMMOGRAM WITH COMPUTER-AIDED DETECTION AND TOMOSYNTHESIS TECHNIQUE: CC and MLO views were obtained. These mammographic images have been obtained using full-field digital technique. These mammographic images were interpreted with the benefit of computer-aided detection. Breast Tomosynthesis was used in this interpretation. COMPARISON FILM: 02/25/23, 06/26/21, 08/03/19. FINDINGS: The breasts are heterogeneously dense, which may obscure small masses IMPRESSION: There is no radiographic evidence for malignancy. ASSESSMENT: BI-RADS Category 1: Negative RECOMMENDATION: Routine screening mammogram in 1 year. A lay language report of this examination will be provided to the patient. Smith Velarde M.D. Diagnostic Radiologist [email or web address] Transcribed: 2:19 p.mJohanna min/Dictated by: Smith Velarde MD @ 04/06/2024 10:09:00 AM (Electronically Signed)
== END 2024-04-03 16:15 | disposition home or self-care (01) ==
LOC: MAMMO 16:16
PROVIDERS: PCP Emergency Medicine; Visit Provider Emergency Medicine
DX: Z12.31 Encounter for screening mammogram for malignant neoplasm of breast (principal); R92.333 Mammographic heterogeneous density, bilateral breasts
CPT/HCPCS: 77063; 77067

== ENCOUNTER 2024-09-05 16:12 | Outpatient (CLI) | payer OTHER, SELFPAY | END 2024-09-05 16:13 | disposition home or self-care (01) | PROVIDERS: PCP Emergency Medicine; Visit Provider Emergency Medicine | DX: E78.2 Mixed hyperlipidemia (principal); I10 Essential (primary) hypertension; N91.2 Amenorrhea, unspecified | CPT/HCPCS: 80048; 80061; 83001 ==